=== PATIENT | female | born 1975 ===

== ENCOUNTER 2017-09-05 09:43 | Outpatient (CLI) | payer OTHER | END 2017-09-05 17:00 | disposition home or self-care (01) | LOC: SONOGRAMA 09:43 | DX: R31.9 Hematuria, unspecified (principal) ==

== ENCOUNTER 2017-09-05 09:50 | Outpatient (CLI) | payer OTHER | END 2017-09-05 17:00 | disposition home or self-care (01) | LOC: RAD 09:50 | DX: R31.9 Hematuria, unspecified (principal) ==